=== PATIENT | male | born 1960 | race Caucasian/White ===

== ENCOUNTER 2019-06-02 04:23 | Emergency (ER) | payer OTHER ==
[~2019-06-02] VITALS: Ht 182.9 cm; Wt 109.0 kg
--- NOTE | 2019-06-02 04:29 | PHYS DOC ---
Adult General Chief Complaint Chief Complaint: ".. I was working up on [employer].. .the pt. Isauro.. was acting out swinging his walker ... I backed up to keep from getting hit... slipped and fell back hiiting my head.. I did see star's.. but nevery went out completely... the bleeding stopped on the way down here..." HPI HPI Patient is a 58 year old male who works on the [employer] unit who presents with above hx and complaints of head injury. Patient has approximately 3-4 cm laceration to back of scalp. Denies loss of consciousness. Patient reports he was stunned. Pt. follows with Dr. Muir. Patient is up-to-date with tetanus. No recent travel. No specific ill contacts. Is an attempt without problems. Review of Systems Review of Systems Constitutional: Denies fever or chills [] Eyes: Denies change in visual acuity, redness, or eye pain [] HENT: Denies nasal congestion or sore throat [] Respiratory: Denies cough or shortness of breath [] Cardiovascular: No additional information not addressed in HPI [] GI: Denies abdominal pain, nausea, vomiting, bloody stools or diarrhea [] : Denies dysuria or hematuria [] Musculoskeletal: Denies back pain or joint pain [] Integument: Denies rash or skin lesions [] Neurologic: Denies headache, focal weakness or sensory changes [] Endocrine: Denies polyuria or polydipsia [] All other systems were reviewed and found to be within normal limits, except as documented in this note. Family History Family History Noncontributory to presentation Current Medications Current Medications See nursing for home meds Allergies Allergies Allergic to Keflex Physical Exam Physical Exam Constitutional: Well developed, well nourished, no acute distress, non-toxic appearance. [] HENT: Normocephalic, 3-4 cm laceration posterior scalp with small hematoma, bilateral external ears normal, oropharynx moist, no oral exudates, nose normal. [] Eyes: PERRLA, EOMI, conjunctiva normal, no discharge. Glasses Neck: Normal range of motion, no tenderness, supple, no stridor. [] Cardiovascular:Heart rate regular rhythm, no murmur [] Lungs & Thorax: Bilateral breath sounds equal at apex auscultation [] Abdomen: Bowel sounds normal, soft, no tenderness, no masses, no pulsatile masses. [] Skin: Warm, dry, no erythema, no rash. [] Back: No tenderness, no CVA tenderness. [] Extremities: No tenderness, no cyanosis, no clubbing, ROM intact, no edema. [] Neurologic: Alert and oriented X 3, normal motor function, normal sensory fu nction, no focal deficits noted. []DTRs +2 patella and brachial. Ambulatory without problems. Psychologic: Affect normal, judgement normal, mood normal. [] EKG EKG [] Radiology/Procedures Radiology/Procedures [][address] [address] IMAGING REPORT Signed PATIENT: JOSE ELIAS MCNEAL ACCOUNT: [id number] : 1960 LOCATION: ER AGE: 58 SEX: M EXAM STATUS: REG ER ORD. PHYSICIAN: MODESTA LAMBERT MD REASON: Head and neck injury, laceration to posterior head, neck pain PROCEDURE: CT HEAD AND CERVICAL SPINE WO PQRS Compliance Statement: One or more of the following individualized dose reduction techniques were utilized for this examination: 1. Automated exposure control 2. Adjustment of the mA and/or kV according to patient size 3. Use of iterative reconstruction technique CT HEAD AND CERVICAL SPINE WITHOUT CONTRAST History: Head and neck injury, laceration to posterior head. Neck pain. Comparison: None. Procedure: Axial images are obtained of the head from the skull base through the vertex without IV contrast. Noncontrast helical CT of the cervical spine was performed. Axial, sagittal, and coronal reconstructions were obtained. Findings: The ventricles and sulci are normal for the patient's age. No mass-effect, midline shift, hemorrhage or obvious acute infarction is identified. Basilar cisterns are patent. Bone windows demonstrate no significant calvarial abnormality. The visualized paranasal sinuses are clear. Mastoid air cells are well aerated. There is no evidence of acute fracture or acute malalignment of the cervical spine. The facet and uncovertebral joints are moderately hypertrophic. This contributes to multilevel neural foraminal narrowing. There is mild grade 1 anterolisthesis of C4 on C5 and C7 on T1. Alignment otherwise maintained. There is disc space narrowing and endplate spurring and sclerosis that is most advanced at C4/C5, C5/C6, and C6/C7. Visualized soft tissues of the neck demonstrate no significant abnormalities. The visualized lung apices are clear. IMPRESSION: 1. No acute intracranial abnormality. 2. No acute fracture of the cervical spine. 3. There is moderate to severe cervical spondylosis. Electronically signed by: Stevenson Huggins MD (06/02/2019 5:16 AM) [id number] DICTATED AND SIGNED BY: STEVENSON HUGGINS MD DATE: 06/02/19 0516 CC: MODESTA LAMBERT MD; FARTUN MUIR MD ~ Course & Med Decision Making Course & Med Decision Making Pertinent Labs and Imaging studies reviewed. (See chart for details) Patient take Tylenol as stated for discomfort. Patient use Polysporin to laceration site 4 times a day. Patient keep laceration clean and dry. No direct shower water 7 days. Follow-up workmen comp. Return if any concerns. Head injury precautions given. Follow-up primary care. Impression: 1. Head Injury 2. Head laceration 4 cm [] Dragon Disclaimer Dragon Disclaimer This electronic medical record was generated, in whole or in part, using a voice recognition dictation system. Departure Departure: Disposition: 01 HOME/RESIDENCE PRIOR TO ADM Condition: STABLE Referrals: FARTUN MUIR MD (PCP) Iván Disclaimer This chart was dictated in whole or in part using Voice Recognition software in a busy, high-work load, and often noisy Emergency Department environment. It may contain unintended and wholly unrecognized errors or omissions. MODESTA LAMBERT MD Jun 02, 2019 04:29
[2019-06-02] MEDS ORDERED: DIPHTH,PERTUSS(ACELL),TET TOX 0.5 ML DISP.SYRIN. VAX IM ONE (05:00)
[2019-06-02] MEDS ORDERED: MUPIROCIN 2% TOPICAL OINTMENT 22GM TUBE. TP ONE (05:00)
[2019-06-02] MEDS ORDERED: ACETAMINOPHEN 500 MG TABLET PO ONE (05:00)
--- NOTE | 2019-06-02 05:19 | RAD ---
PQRS Compliance Statement: One or more of the following individualized dose reduction techniques were utilized for this examination: 1. Automated exposure control 2. Adjustment of the mA and/or kV according to patient size 3. Use of iterative reconstruction technique CT HEAD AND CERVICAL SPINE WITHOUT CONTRAST History: Head and neck injury, laceration to posterior head. Neck pain. Comparison: None. Procedure: Axial images are obtained of the head from the skull base through the vertex without IV contrast. Noncontrast helical CT of the cervical spine was performed. Axial, sagittal, and coronal reconstructions were obtained. Findings: The ventricles and sulci are normal for the patient's age. No mass-effect, midline shift, hemorrhage or obvious acute infarction is identified. Basilar cisterns are patent. Bone windows demonstrate no significant calvarial abnormality. The visualized paranasal sinuses are clear. Mastoid air cells are well aerated. There is no evidence of acute fracture or acute malalignment of the cervical spine. The facet and uncovertebral joints are moderately hypertrophic. This contributes to multilevel neural foraminal narrowing. There is mild grade 1 anterolisthesis of C4 on C5 and C7 on T1. Alignment otherwise maintained. There is disc space narrowing and endplate spurring and sclerosis that is most advanced at C4/C5, C5/C6, and C6/C7. Visualized soft tissues of the neck demonstrate no significant abnormalities. The visualized lung apices are clear. IMPRESSION: 1. No acute intracranial abnormality. 2. No acute fracture of the cervical spine. 3. There is moderate to severe cervical spondylosis. Electronically signed by: Stevenson Huggins MD (06/02/2019 5:16 AM) [id number]
[2019-06-02 06:40] VITALS: BP 145/87
== END 2019-06-02 06:40 | disposition home or self-care (01) ==
LOC: ER 04:23
DX: S01.01XA Laceration without foreign body of scalp, initial encounter (principal); Z88.1 Allergy status to other antibiotic agents; W01.198A Fall on same level from slipping, tripping and stumbling with subsequent striking against other object, initial encounter; Y93.89 Activity, other specified; Y92.89 Other specified places as the place of occurrence of the external cause; Y99.8 Other external cause status
CPT/HCPCS: 70450; 72125; 99285

== ENCOUNTER → 2019-08-06 | Outpatient (CLI) | payer OTHER | LOC: LAB 06:47 → EEVIPCON 06:47 | PROVIDERS: ATTEND Internal Medicine Cardiovascular Disease | DX: R05 Cough (principal); R06.03 Acute respiratory distress; Z20.828 Contact with and (suspected) exposure to other viral communicable diseases | CPT/HCPCS: 87635 ==

== ENCOUNTER → 2019-11-05 | Outpatient (CLI) | payer OTHER | LOC: LAB 07:37 | PROVIDERS: ATTEND Internal Medicine Cardiovascular Disease | DX: R05 Cough (principal); Z20.828 Contact with and (suspected) exposure to other viral communicable diseases | CPT/HCPCS: C9803; U0003; 36415 ==

== ENCOUNTER → 2019-11-11 | Outpatient (CLI) | payer OTHER | END | disposition home or self-care (01) | LOC: LAB 13:00 | PROVIDERS: ATTEND Internal Medicine Cardiovascular Disease | DX: Z20.828 Contact with and (suspected) exposure to other viral communicable diseases (principal) | CPT/HCPCS: C9803; U0003; 36415 ==

== ENCOUNTER → 2019-11-18 | Outpatient (CLI) | payer OTHER | END | disposition home or self-care (01) | LOC: LAB 16:17 | PROVIDERS: ATTEND Internal Medicine Cardiovascular Disease | DX: Z20.828 Contact with and (suspected) exposure to other viral communicable diseases (principal) | CPT/HCPCS: C9803; U0003; 36415 ==

== ENCOUNTER → 2019-12-24 | Outpatient (CLI) | payer OTHER | END | disposition home or self-care (01) | LOC: LAB 03:46 | PROVIDERS: ATTEND Internal Medicine Cardiovascular Disease | DX: Z20.828 Contact with and (suspected) exposure to other viral communicable diseases (principal) | CPT/HCPCS: U0003-CS ==

== ENCOUNTER → 2020-03-07 | Outpatient (CLI) | payer OTHER | LOC: LAB 15:38 | PROVIDERS: ATTEND Internal Medicine Cardiovascular Disease | DX: Z20.828 Contact with and (suspected) exposure to other viral communicable diseases (principal) | CPT/HCPCS: U0003 ==

== ENCOUNTER → 2020-03-20 | Outpatient (CLI) | payer OTHER | LOC: LAB 18:06 | PROVIDERS: ATTEND Internal Medicine Cardiovascular Disease | DX: Z20.828 Contact with and (suspected) exposure to other viral communicable diseases (principal) | CPT/HCPCS: U0003 ==

== ENCOUNTER → 2020-03-27 | Outpatient (CLI) | payer OTHER | LOC: LAB 17:54 | PROVIDERS: ATTEND Internal Medicine Cardiovascular Disease | DX: Z20.828 Contact with and (suspected) exposure to other viral communicable diseases (principal) | CPT/HCPCS: U0003 ==

== ENCOUNTER → 2020-11-13 | Outpatient (CLI) | payer OTHER | LOC: LAB 07:21 | PROVIDERS: ATTEND Internal Medicine Cardiovascular Disease | DX: Z20.822 Contact with and (suspected) exposure to COVID-19 (principal) | CPT/HCPCS: U0003; U0005 ==

== ENCOUNTER → 2020-11-21 | Outpatient (CLI) | payer OTHER | LOC: LAB 06:00 | PROVIDERS: ATTEND Internal Medicine Cardiovascular Disease | DX: Z20.822 Contact with and (suspected) exposure to COVID-19 (principal) | CPT/HCPCS: U0003 ==

== ENCOUNTER → 2020-12-08 | Outpatient (CLI) | payer OTHER | LOC: LAB 06:00 | PROVIDERS: ATTEND Internal Medicine Cardiovascular Disease | DX: Z20.822 Contact with and (suspected) exposure to COVID-19 (principal) | CPT/HCPCS: C9803; U0003 ==

== ENCOUNTER → 2020-12-14 | Outpatient (CLI) | payer OTHER | LOC: LAB 06:52 | PROVIDERS: ATTEND Internal Medicine Cardiovascular Disease | DX: Z20.822 Contact with and (suspected) exposure to COVID-19 (principal) | CPT/HCPCS: U0003 ==

== ENCOUNTER → 2020-12-21 | Outpatient (CLI) | payer OTHER | LOC: LAB 05:30 | PROVIDERS: ATTEND Internal Medicine Cardiovascular Disease | DX: Z20.822 Contact with and (suspected) exposure to COVID-19 (principal) | CPT/HCPCS: C9803; U0003 ==

== ENCOUNTER → 2020-12-29 | Outpatient (CLI) | payer OTHER | LOC: LAB 06:00 | PROVIDERS: ATTEND Internal Medicine Cardiovascular Disease | DX: Z20.822 Contact with and (suspected) exposure to COVID-19 (principal) | CPT/HCPCS: C9803; U0003 ==

== ENCOUNTER → 2021-01-06 | Outpatient (CLI) | payer OTHER | LOC: LAB 01:37 | PROVIDERS: ATTEND Internal Medicine Cardiovascular Disease | DX: Z20.822 Contact with and (suspected) exposure to COVID-19 (principal) | CPT/HCPCS: U0003 ==

== ENCOUNTER → 2021-01-19 | Outpatient (CLI) | payer OTHER | LOC: LAB 04:43 | PROVIDERS: ATTEND Internal Medicine Cardiovascular Disease | DX: Z20.822 Contact with and (suspected) exposure to COVID-19 (principal) | CPT/HCPCS: U0003 ==

== ENCOUNTER → 2021-01-25 | Outpatient (CLI) | payer OTHER | LOC: LAB 13:38 | PROVIDERS: ATTEND Internal Medicine Cardiovascular Disease | DX: Z20.822 Contact with and (suspected) exposure to COVID-19 (principal) | CPT/HCPCS: U0003 ==

== ENCOUNTER → 2021-01-31 | Outpatient (CLI) | payer OTHER | LOC: LAB 08:10 | PROVIDERS: ATTEND Internal Medicine Cardiovascular Disease | DX: Z20.822 Contact with and (suspected) exposure to COVID-19 (principal) | CPT/HCPCS: U0003 ==

== ENCOUNTER → 2021-02-08 | Outpatient (CLI) | payer OTHER | LOC: LAB 10:27 | PROVIDERS: ATTEND Internal Medicine Cardiovascular Disease | DX: Z20.822 Contact with and (suspected) exposure to COVID-19 (principal) | CPT/HCPCS: U0003 ==

== ENCOUNTER → 2021-02-17 | Outpatient (CLI) | payer OTHER | LOC: LAB 15:53 | PROVIDERS: ATTEND Internal Medicine Cardiovascular Disease | DX: Z20.822 Contact with and (suspected) exposure to COVID-19 (principal) | CPT/HCPCS: C9803; U0003 ==

== ENCOUNTER → 2021-02-23 | Outpatient (CLI) | payer OTHER | LOC: LAB 05:55 | PROVIDERS: ATTEND Internal Medicine Cardiovascular Disease | DX: Z20.822 Contact with and (suspected) exposure to COVID-19 (principal) | CPT/HCPCS: U0003 ==

== ENCOUNTER → 2021-03-02 | Outpatient (CLI) | payer OTHER | LOC: LAB 14:00 | PROVIDERS: ATTEND Internal Medicine Cardiovascular Disease | DX: Z20.822 Contact with and (suspected) exposure to COVID-19 (principal) | CPT/HCPCS: U0003 ==

== ENCOUNTER → 2021-03-09 | Outpatient (CLI) | payer OTHER | LOC: LAB 09:34 | PROVIDERS: ATTEND Internal Medicine Cardiovascular Disease | DX: Z20.822 Contact with and (suspected) exposure to COVID-19 (principal) | CPT/HCPCS: U0003 ==

== ENCOUNTER → 2021-03-17 | Outpatient (CLI) | payer OTHER | LOC: LAB 05:30 | PROVIDERS: ATTEND Internal Medicine Cardiovascular Disease | DX: Z20.822 Contact with and (suspected) exposure to COVID-19 (principal) | CPT/HCPCS: C9803; U0003 ==

== ENCOUNTER → 2021-03-26 | Outpatient (CLI) | payer OTHER | LOC: LAB 05:45 | PROVIDERS: ATTEND Internal Medicine Cardiovascular Disease | DX: Z20.822 Contact with and (suspected) exposure to COVID-19 (principal) | CPT/HCPCS: C9803; U0003 ==

== ENCOUNTER → 2021-04-12 | Outpatient (CLI) | payer OTHER | LOC: LAB 15:22 | PROVIDERS: ATTEND Internal Medicine Cardiovascular Disease | DX: Z20.822 Contact with and (suspected) exposure to COVID-19 (principal) | CPT/HCPCS: C9803; U0003 ==

== ENCOUNTER → 2021-04-19 | Outpatient (CLI) | payer OTHER | LOC: LAB 04:30 | PROVIDERS: ATTEND Internal Medicine Cardiovascular Disease | DX: Z20.822 Contact with and (suspected) exposure to COVID-19 (principal) | CPT/HCPCS: U0003 ==

== ENCOUNTER → 2021-04-25 | Outpatient (CLI) | payer OTHER | LOC: LAB 09:54 | PROVIDERS: ATTEND Internal Medicine Cardiovascular Disease | DX: Z20.822 Contact with and (suspected) exposure to COVID-19 (principal) | CPT/HCPCS: U0003 ==

== ENCOUNTER → 2021-05-02 | Outpatient (CLI) | payer OTHER | LOC: LAB 05:45 | PROVIDERS: ATTEND Internal Medicine Cardiovascular Disease | DX: Z20.822 Contact with and (suspected) exposure to COVID-19 (principal) | CPT/HCPCS: C9803; U0003 ==

== ENCOUNTER → 2021-05-17 | Outpatient (CLI) | payer OTHER | LOC: LAB 07:00 | PROVIDERS: ATTEND Internal Medicine Cardiovascular Disease | DX: Z20.822 Contact with and (suspected) exposure to COVID-19 (principal) | CPT/HCPCS: U0003 ==